=== PATIENT | male | born 1975 ===

== ENCOUNTER 2022-01-08 12:23 | Outpatient (CLI) | payer OTHER ==
--- NOTE | 2022-01-08 17:37 | MRI Report ---
PROCEDURE: Abdomen W/WO INDICATIONS: History of colonic adenocarcinoma. Possible prior abnormal liver imaging. CONTRAST: IV CONTRAST: Gadavist ml: 10.9 TECHNIQUE: Coronal ultra fast SE, axial 2D spoiled GE in- and [id number]; axial breath-hold T2 fast SE. Dynam ic axial ultra fast GE during the administration of contrast; post-contrast coronal ultra fast GE or 2D spoiled GE with fat saturation from the hepatic dome to the iliac crests. Optional diffusion weig hted imaging and ADC may be performed. COMPARISON: None. FINDINGS: Image quality: Suboptimal due to motion artifact, particularly on this contrast portal venous phase i mages. Lung bases: No basal pleural effusions. Liver: Unremarkable background signal. A 1.7 cm T2 hyperintense structure is present at the anterior aspect of segment IVb (axial T2 series 5 image 20). There is little if any enhancement on arterial ph ase images and portal venous phase images are significantly degraded by artifact. On delayed images, the majority of the finding demonstrates enhancement similar in intensity to blood pool, possibly per ipheral and nodular. No other focal liver lesions identified. Solid organs: Spleen is normal in size and enhancement. A large gallstone is present in the gallblad mayra. Biliary system is non dilated. Pancreas is normal in morphology. No adrenal nodules. Both kid neys demonstrate normal size and enhancement, without hydronephrosis. Nodes and vessels: No retroperitoneal or mesenteric adenopathy by size criteria. Visualized aorta a nd inferior vena cava are normal in size. Bowel and peritoneum: Unenhanced bowel loops are normal in caliber. No free fluid. Bones and soft tissues: No ventral hernias. Bone marrow is unremarkable in overall signal. IMPRESSION: 1. A 1.7 cm structure is present in hepatic segment IVb. This is suspected to represent a hemangioma, but is difficult to definitively characterize due to artifact present on this exam and other etiolog ies are not excluded. If definitive evaluation is desired, a multiphase CT of the abdomen without and with contrast (multiphase liver protocol) may be helpful for further evaluation. Otherwise, attentio n to this finding on future follow-up exams could be helpful to assess for interval change. 2. Cholelithiasis. Reviewed by: Morris Riley MD on 01/08/2022 5:36 PM PDT Approved by: Morris Riley MD on 01/08/2022 5:36 PM PDT Station ID: [id number]
== END 2022-01-08 12:24 | disposition home or self-care (01) ==
LOC: DI 12:23
DX: R93.2 Abnormal findings on diagnostic imaging of liver and biliary tract (principal); K80.20 Calculus of gallbladder without cholecystitis without obstruction
CPT/HCPCS: 74183; A9585